=== PATIENT | female | born 1990 | race Two or more races ===

== ENCOUNTER 2019-06-10 16:06 | Emergency (ER) | payer BC ==
--- NOTE | 2019-06-10 16:30 | ER Document Report ---
ED Fever - General Chief Complaint: Fever Stated Complaint: FEVER Time Seen by Provider: 06/10/19 16:10 Information source: Patient - HPI Notes: Patient arrives from [facility]. Patient was recently seen at an outlying emergency department and involuntary committed for psychosis. Patsy soriano was then transferred to [facility] for inpatient psychiatric care. She arrived at [facility] today. Over the span of several hours while at [facility] she developed a fever to 100.6. She also stated that she had a cough so she was sent here to the emergency department. She states she has had an intermittent nonproductive cough. She has had some fevers. She denies any travel or any known exposures to coronavirus. Patient denies any shortness of breath. She denies any pain. Patient denies suicidal and homicidal ideation. She denies any auditory or visual hallucinations. Patient's fever has been intermittent. Nothing appears to make it better or worse. No known radiation of the symptoms. They have been non-constant as above. Her psychosis apparently has been made worse by stress such as dealing with coronavirus. - Related Data Allergies/Adverse Reactions: No Known Allergies Allergy (Unverified 06/10/19 16:10) Past Medical History - General Information source: Patient - Social History Smoking Status: Never Smoker Frequency of alcohol use: None Drug Abuse: None Family History: Reviewed & Not Pertinent Patient has suicidal ideation: No Patient has homicidal ideation: No Review of Systems - Review of Systems Constitutional: Fever. denies: Chills Cardiovascular: denies: Chest pain, Dyspnea Respiratory: Cough. denies: Short of breath -: Yes All other systems reviewed and negative Physical Exam - Vital signs Vitals: Temp Pulse Resp BP Pulse Ox 98.3 F 119 H 18 148/94 H 100 06/10/19 16:14 06/10/19 16:14 06/10/19 16:14 06/10/19 16:14 06/10/19 16:14 Interpretation: Normal - General General appearance: Appears well, Alert - HEENT Head: Normocephalic, Atraumatic Eyes: Normal Pupils: PERRL - Respiratory Respiratory status: No respiratory distress Chest status: Nontender Breath sounds: Normal Chest palpation: Normal - Cardiovascular Rhythm: Tachycardia Heart sounds: Normal auscultation Murmur: No - Abdominal Inspection: Normal Distension: No distension Bowel sounds: Normal Tenderness: Nontender Organomegaly: No organomegaly - Back Back: Normal, Nontender - Extremities General upper extremity: Normal inspection, Nontender, Normal color, Normal ROM, Normal temperature General lower extremity: Normal inspection, Nontender, Normal color, Normal ROM, Normal temperature, Normal weight bearing. No: Greyson's sign - Neurological Neuro grossly intact: Yes Cognition: Normal Orientation: AAOx4 Chris Coma Scale Eye Opening: Spontaneous [place]eda Coma Scale Verbal: Oriented Reseda Coma Scale Motor: Obeys Commands Reseda Coma Scale Total: 15 Speech: Normal Motor strength normal: LUE, RUE, LLE, RLE Sensory: Normal - Psychological Associated symptoms: Anxious, Flight of ideas - Skin Skin Temperature: Warm Skin Moisture: Dry Skin Color: Normal Course - Re-evaluation Re-evalutation: 06/10/19 18:24 Patient was transferred to [facility] for psychosis earlier today. During intake at [facility] she was noticed to have fever of 100.6 with a cough so she was referred here. She has no known covid risk factors such as exposures or travel. Patient is afebrile here. She is tachycardic but she is also anxious and agitated. She does not appear to have any type of labored breathing. She has had no coughing that I have witnessed here. Chest x-ray is unremarkable. She is got a very mildly elevated white blood cell count. At this time I think patient may possibly have a viral URI but not covid. I did place a covid test to be conservative. This will need to be followed up as an outpatient. Patient will be referred back to [facility] with a suggestion for quarantine with droplet precautions for 14 days or until Covid test results return. - Vital Signs Vital signs: Temp Pulse Resp BP Pulse Ox 98.3 F 119 H 18 148/94 H 100 06/10/19 16:14 06/10/19 16:14 06/10/19 16:14 06/10/19 16:14 06/10/19 16:14 - Laboratory Result Diagrams: 06/10/19 16:30 06/10/19 16:30 Laboratory results interpreted by me: 06/10/19 06/10/19 16:30 16:30 WBC 10.6 H RBC 5.55 H Hgb 16.1 H Glucose 178 H Total Protein 8.4 H - Diagnostic Test Radiology reviewed: Image reviewed, Reports reviewed - EKG Interpretation by Me EKG shows normal: Sinus rhythm Rate: Tachycardia - 118 Rhythm: NSR [place]/QRS: No: Right axis deviation, Left axis deviation Discharge - Discharge Clinical Impression: URI (upper respiratory infection) Qualifiers: URI type: unspecified URI Qualified Code(s): J06.9 - Acute upper respiratory infection, unspecified Psychosis Qualifiers: Psychosis type: unspecified psychosis type Qualified Code(s): F29 - Unspecified psychosis not due to a substance or known physiological condition Condition: Stable Disposition: PSYCH HOSP/UNIT Instructions: Upper Respiratory Illness ([facility]) Additional Instructions: Patient will need to be on 14-day isolation with droplet precautions. She will also need to be wearing a mask at all times. A Covid test was drawn and will be back within the next couple of days. If Covid is negative isolation can be discontinued. Pt to return if increasing fever, shortness of breath or any concerns. Referrals: OLENA DIXON MD [Primary Care Provider] - Follow up in 3-5 days
[2019-06-10 16:57] LABS: ABSOLUTE BASOPHILS # (AUTO) 0.1 10^3/uL (0.0-0.2); ABSOLUTE EOSINOPHILS # (AUTO) 0.1 10^3/uL (0.0-0.6); ABSOLUTE LYMPHOCYTES (AUTO) 2.8 10^3/uL (0.5-4.7); ABSOLUTE MONOCYTES (AUTO) 0.7 10^3/uL (0.1-1.4); BASOPHILS % (AUTO) 0.5 % (0-2); EOSINOPHILS % (AUTO) 0.5 % (0-6); HEMATOCRIT 44.9 % (36.0-47.0); HEMOGLOBIN 16.1 g/dL (12.0-15.5); LYMPHOCYTES % (AUTO) 26.7 % (13-45); MEAN CORPUSCULAR HGB CONC 35.9 g/dL (32.0-36.0); MEAN CORPUSCULAR VOLUME 81 fl (80-97); MONOCYTES % (AUTO) 6.4 % (3-13); PLATELET COUNT 263 10^3/uL (150-450); RED BLOOD COUNT 5.55 10^6/uL (3.72-5.28); RED CELL DISTRIBUTION WIDTH 13.1 % (11.5-14.0); SEGMENTED NEUTROPHILS % (AUTO) 65.9 % (42-78); TOTAL CELLS COUNTED % (AUTO) 100 %; WHITE BLOOD COUNT 10.6 10^3/uL (4.0-10.5)
[2019-06-10 17:22] LABS: ALBUMIN 4.9 g/dL (3.5-5.0); ALKALINE PHOSPHATASE 64 U/L (38-126); ANION GAP 13 (5-19); ASPARTATE AMINO TRANSFERASE 20 U/L (14-36); BILIRUBIN,TOTAL 0.8 mg/dL (0.2-1.3); BLOOD UREA NITROGEN 11 mg/dL (7-20); CARBON DIOXIDE 23 mmol/L (22-30); CHLORIDE 104 mmol/L (98-107); GLUCOSE 178 mg/dL (75-110); POTASSIUM 3.9 mmol/L (3.6-5.0); TOTAL PROTEIN 8.4 g/dL (6.3-8.2)
[2019-06-10 17:40] LABS: A TYPE INFLUENZA AG NEGATIVE (NEGATIVE); B INFLUENZA AG NEGATIVE (NEGATIVE)
--- NOTE | 2019-06-10 18:01 | RADIOLOGY REPORT (SQ) ---
EXAM DESCRIPTION: CHEST SINGLE VIEW IMAGES COMPLETED DATE/TIME: 06/10/2019 3:56 pm REASON FOR STUDY: cough COMPARISON: None EXAM PARAMETERS: NUMBER OF VIEWS: One view. TECHNIQUE: Single frontal radiographic view of the chest acquired. RADIATION DOSE: NA LIMITATIONS: None. FINDINGS: LUNGS AND PLEURA: No opacities, masses or pneumothorax. No pleural effusion. MEDIASTINUM AND HILAR STRUCTURES: No masses. Contour normal. HEART AND VASCULAR STRUCTURES: Heart normal in size. Normal vasculature. BONES: No acute findings. HARDWARE: None in the chest. OTHER: No other significant finding. IMPRESSION: NO ACUTE RADIOGRAPHIC FINDING IN THE CHEST. TECHNICAL DOCUMENTATION: JOB ID: [id number] 2010 [employer]- All Rights Reserved Reading location - IP/workstation name: [email or web address]
--- NOTE | 2019-06-10 18:06 | EKG REPORT ---
SEVERITY:- ABNORMAL ECG - SINUS TACHYCARDIA artifacts repeat ekg : Confirmed by: Lianne Castillo 10-Jun-2019 18:05:14
--- NOTE | 2019-06-11 15:05 | ER Document Report ---
Doctor's Note Notes: 06/11/19 15:03 Patient reexamined at this time. Patient is resting comfortably in her bed. She still does appear to be responding to internal stimuli laughing and having conversations although no one else is in the room. She otherwise has no significant complaints. At this time she is waiting on disposition back to the psychiatric facility. I feel that patient is very low risk for covid but to be safe patient should be in self-isolation until results of Covid testing are obtained.
[2019-06-11] MEDS ORDERED: HALOPERIDOL LACTATE INJ 5 MG/1 ML VIAL IM ONE (23:35)
[2019-06-12] MEDS ORDERED: DIPHENHYDRAMINE HCL 50 MG/ML VIAL IM ONE (07:52)
[2019-06-12] MEDS ORDERED: LORAZEPAM INJ 2 MG/1 ML VIAL IM ONE (07:52)
[2019-06-12 08:14] LABS: APPEARANCE,URINE CLOUDY; BILIRUBIN,URINE NEGATIVE (NEGATIVE); GLUCOSE, URINE NEGATIVE (NEGATIVE); KETONES,URINE NEGATIVE (NEGATIVE); PROTEIN,URINE 100 mg/dL (NEGATIVE); URINE SPECIFIC GRAVITY 1.031
[2019-06-12 08:15] LABS: COLOR,URINE DARK YELLOW
[2019-06-12] MEDS ORDERED: CEPHALEXIN 500 MG CAPSULE PO ONE (09:55)
--- NOTE | 2019-06-12 09:55 | ER Document Report ---
Doctor's Note Notes: 06/12/19 09:54 Patient reexamined this morning. Patient has no significant complaints. She is happy and walking about the room. Patient still does appear to be responding to internal stimuli inappropriately laughing and talking without anyone else in the room. She has had no complications while she is been here. We are still awaiting placement. The urine has been sent which was a contaminated specimen with many epithelial cells. However since patient is diabetic I will err on the conservative side and start her on some Keflex. Also going to perform an Accu- Chek.
[2019-06-12 10:53] LABS: APPEARANCE,URINE CLOUDY; BILIRUBIN,URINE NEGATIVE (NEGATIVE); COLOR,URINE AMBER; GLUCOSE, URINE NEGATIVE (NEGATIVE); KETONES,URINE NEGATIVE (NEGATIVE); LEUKOCYTE ESTERASE,URINE NEGATIVE (NEGATIVE); NITRITE,URINE NEGATIVE (NEGATIVE); PROTEIN,URINE 100 mg/dL (NEGATIVE)
[2019-06-12 22:57] VITALS: BP 140/93
--- NOTE | 2019-06-13 16:07 | ER Document Report ---
Doctor's Note Notes: 06/13/19 15:32 Met with Patient to evaluate her mental status. Patient was able to engage appropriately in conversation and report that she was take to [facility] by her because of the "COVID Logo." She reported she was fearful of the COVID LOGO and what was behind it. She was able to provide historical information regarding her previous hospitalization at the [facility] the previous year and that it was secondary to auditory and visual hallucinations, and that medication was successful in managing her symptoms. She denied a history of suicidal or homicidal ideation and stated she currently does not have any thoughts of self-harm or thoughts of wanting to kill herself or others. Patient denied current auditory or visual hallucinations though indicated she experienced both when the "green COVID Logo is in my room and waving it's arms." Patient denied having a cough or fever currently or in the last month, and was not observed to cough while examiner was in the room nor did she complain of being hot or cold. Spoke with Patient's Brain who indicated he was unsure of what was going on since last he was aware his was transported to [facility] for psychiatric treatment. He stated when he contacted [facility] to check on his the staff were "rude to me and would not provide any information and even questioned whether I was her ." was advised the circumstances of her admission to the ED and general reason of why she remains in the ED, which is that Patient is considered medically clear but [facility] is refusing to accept her back into the facility until her COVID results are back, even though they have been advised by the ED Afterschool/attending physician she has less than a 5% chance of being positive for the virus given her medical and overall laboratory results. was advised patient no longer meets criteria for IVC under the [place] GS 122C and rescinding paperwork will be completed. He was provided the option of [facility]'s Office being contacted to pick her up as stated in statute or he could pick her up. reported he wanted to come get his and bring her home. She has a scheduled appointment with her psychiatric provider on June 13, 2019 and he would like her to attend. reported he did not feel as though the patient was in a very bad space when he took her to the hospital initially but that she was very paranoid and appeared scared. He stated he wanted her to receive medications to help with her symptoms. was advised the patient was given medications for a UTI and for her psychosis and scripts would be provided for her at discharge. Patient is alert and oriented to person, place, time of day, and circumstance. Mood was cooperative and affect was flat/blunted. She denied suicidal / homicidal ideation, intent or plan. She admitted to intermittent auditory /visual hallucinations and fear when she "saw" the green [employer] Logo. Thought processes were slow with intermittent evidence of paranoia. Otherwise she was rational and logical. Conversational speech was slow and monotone, with normal prosody. Eye contact was well maintained and did not appear as though she was responding to internal stimuli during the evaluation. Medication Recommendations from Consulting Psychiatrist: 1. Abilify 5 mg twice per day 2. Abilify Maintena 400mg IM 1 time per month 3. Buspar 5 mg twice per day 4. Clonidine 01.mg twice per day Impression / Plan: Patient is recommended for rescind of IVC. Though she maintains some intermittent symptoms of psychosis that appear to cause some mild distress, they do not appear to place her in a position to cause herself or others harm, and she appears capable of caring for herself without 24-hour supervision. Her reports he is committed to staying with his and ensuring she is medication compliant, and reported he will take her to her psychiatric provider's appointment on June 13, 2019 ([facility]). Patient is willing to take medication and is looking forward to returning home. ED Physician in agreement with disposition and recommendations.
--- NOTE | 2019-06-18 18:24 | ER Document Report ---
Doctor's Note Notes: 06/18/19 18:13 Spoke with Patient's and follow up on patient's status and advise of COVID-19 results. reported the pharmacy refused to fill the abilify shot, indicating the order needed to come from her primary physician. Before the physician could see her, the patient decompensated secondary to refusing to eat. He took her to the hospital and they admitted her due to physical weakness. He reported they eventually transferred her to a psychiatric hospital near [place]. Advised the that Patient's COVID-19 results were NEGATIVE and if he needed the results in writing to contact the hospital for results verification. was grateful for assistance and follow up phone call.
== END 2019-06-12 22:57 | disposition home or self-care (01) ==
LOC: EDBD → ER 16:06
DX: R50.9 Fever, unspecified (principal); F29 Unspecified psychosis not due to a substance or known physiological condition; Z20.828 Contact with and (suspected) exposure to other viral communicable diseases
CPT/HCPCS: 93005; 99285; 96372; 36415; 82962; 84703; 85025; 87635; 80053; 81001; 87804; 71045; 93010; J1630